=== PATIENT | male | born 1985 | race Caucasian/White ===

== ENCOUNTER 2017-09-15 20:22 | Emergency (ER) | payer BC, OTHER ==
[2017-09-15 20:41] VITALS: BMI 20.5
[2017-09-15] MEDS ORDERED: NS 1000 ML 1,000 ML IV ONE (23:20)
--- NOTE | 2017-09-15 23:26 | DR.GENAD ---
HPI - PCP Primary Care Physician: Justin - Complaint/Symptoms Chief Complaint Doctors Comments: Patient states he went to detox 13 days ago in [place] and has been unable to eat or get comfortable with decreased appetite and not being able to eat for three days. He denies chest pain, SOB, nausea or vomitng but has been having diarrhea. States he was on Symboxin for four years and did not want to take it anymore and when to detox to get off it recently. Sates he smokesbut denies alcohol or drugh usage. Statess he is a patient of Dr. Anderson but he cannot afford to go to him anymore. He denies hematuria or sherlyn. states he has been settting at the house recently and his kids has been sick. Chief Complaint:: Detoxing - Nurses notes reviewed Nurses Notes Review: Yes - Source History Provided: Patient - Mode of Arrival Mode of Arrival: Ambulatory - Timing Onset of Chief Complaint: 09/12/17 Came on: Gradually - Duration Duration: Intermittent How lon Duration: Days - Location Location: diarrhea, weakness - Severity Severity: Moderate - Modifying Factors Worsens:: movement Improves:: nothing PMH - PMH Past Medical History: No Past Medical History: Anxiety, Hypothyroidism Past Surgical History: Yes Surgical History: Appendectomy Past Surgical History Comment: Root canal and hand surgery - Family History History of Family Medical Conditions: No Family Medical History: MA, Coronary Artery Disease - Social History Does patient currently use any type of tobacco product: Yes Have you used tobacco products in the last 12 months: Yes Type of Tobacco Use: Cigarettes Does any household member use tobacco: Yes Alcohol Use: None Do you use any recreational Drugs:: No Lives With: Family Lives Where: Home - infectious screening In the last 2 months have you had wt loss of >10#?: NO Have you had fever, night sweats or hemotysis?: No Have you traveled outside the country in the last 6 months?: No Isolation: Standard ROS - Review of Systems Constitutional: No Symptoms Reported, Weakness, Fatigue, Loss of Appetite Eyes: No Symptoms Reported. negative: See HPI, Eye Pain, Blurred Vision, Tearing, Discharge, Photophobia, Diplopia, Other ENTM: No Symptoms Reported, See HPI Respiratoy: No Symptoms Reported Cardiovascular: No Symptoms Reported Gastrointestinal/Abdominal: Diarrhea. negative: No Symptoms Reported, See HPI, Abdominal Pain, Constipation, Nausea, Vomiting, Food Intolerance, Other Genitourinary: No Symptoms Reported. negative: See HPI, Discharge, Dysuria, Frequency, Hematuria, Pain, Bleeding, Other Neurological: No Symptoms Reported Musculoskeletal: No Symptoms Reported Integumentary: No Symptoms Reported Hematologic/Lymphatic: No Symptoms Reported. negative: See HPI, Anemia, Blood Clots, Easy Bleeding, Easy Bruising, Swollen Glands, Lymphadenopathy, Other Endocrine: No Symptoms Reported Psychiatric: No Symptoms Reported. negative: See HPI, Anxiety, Depression, Hallucinations, Excessive crying, Suicidal, Other PE - Vital Signs Vitals: Temperature 98.7 F Pulse Rate 92 Respiratory Rate 20 Blood Pressure [Right Arm] 132/76 Blood Pressure 163/83 O2 Sat by Pulse Oximetry 98 - General Limitations: No Limitations General Appearance: In Distress (slight). negative: Alert, In No Apparent Distress, Appears Intoxicated, Anxious, Lethargic, Obtunded, Obese, Cachectic, Other - Head Head Exam: Normal Inspection, Atraumatic, Normocephalic - Eyes Eye exam: Normal Appearance, PERRL, EOMI. negative: Scleral Icterus, Conjunctival Injection, Nystagmus, Miosis, Mydrasis, Periorbital Swelling, Periorbital Tenderness, Other - ENT ENT Exam: Normal Exam, Normal Oropharynx, Normal External Ear Exam, Mucous Membranes Moist, TM's Normal Bilaterally External Ear Exam: Normal External Inspection TM/Canal Exam: Bilateral Normal Nose Exam: Normal Nose Exam Mouth Exam: Normal Inspection Throat Exam: Normal Inspection. negative: Tonsillar Erythema, Tonsillomegaly, Tonsillar Exudate, R Peritonsillar Mass, L Peritonsillar Mass, Muffled Voice, Other - Neck Neck Exam: Normal Inspection, Full ROM, Trachea Midline. negative: Tenderness, Meningismus, Lymphadenopathy, Thyromegaly, Other - Chest Chest Inspection: Normal Inspection, Symmetric Chest Wall Rise - Respiratory Respiratory Exam: Normal Lung Sounds Bilat Respiratory Exam: Bilateral Clear to Auscultation - Cardiovascular Cardiovascular Exam: Regular Rate, Normal Rhythm, Normal Heart Sounds. negative : Bradycardia, Tachycardia, Irregular Rhythm, Systolic Murmur, Diastolic Murmur , Rubs, Gallop, Clicks, JVD, +S1, +S2, +S3, +S4, Other - Abdominal Exam Abdominal Exam: Normal Inspection, Normal Bowel Sounds, Soft, Distention. negative: Tenderness, Guarding, Rebound, Rigidity, Dimnished Bowel Sounds, Hyperactive Bowel Sounds, Hypoactive Bowel Sounds, Organomegaly, Trauma, Incision, Ascites, Mass, Bruit, Pulsatile Mass, Hernia, Other Abdominal Tenderness: Epigastrium - Extremities Extremities Exam: Normal Inspection, Full ROM, Normal Capillary Refill. negative: Tenderness, Edema, Joint Swelling, Calf Tenderness, Other - Back Back Exam: Normal Inspection, Full ROM - Neurologic Neurological Exam: Alert, Oriented X3, CN II-XII Intact, Normal Gait, Reflexes Normal. negative: Motor Sensory Deficit - Psychiatric Psychiatric Exam: Normal Affect, Normal Mood. negative: Depressed, Agitated, Anxious, Flat Affect, Homicidal Ideation - Skin Skin Exam: Warm, Dry, Intact, Normal Color ROR - Labs Reviewed Laboratory Results Reviewed?: Yes (all labs and x-ray results reviewed and discussed with patient) Result Diagrams: 09/16/17 00:20 09/16/17 00:20 Laboratory: WBC 6.8 X10^3/uL (3.6-10.0) 09/16/17 00:20 RBC 4.44 X10^6/uL (4.7-6.0) L 09/16/17 00:20 Hgb 13.6 g/dL (13.5-18.0) 09/16/17 00:20 Hct 40.1 % (42.0-54.0) L 09/16/17 00:20 MCV 90.2 fL (80.0-100.0) 09/16/17 00:20 MCH 30.6 pg (27.0-34.0) 09/16/17 00:20 MCHC 34.0 g/dL (33.0-35.0) 09/16/17 00:20 RDW 14.0 % (11.6-16.5) 09/16/17 00:20 Plt Count 287 X10^3/uL (150.0-450.0) 09/16/17 00:20 MPV 7.6 fL (7.4-11.0) 09/16/17 00:20 Neut % 68.0 % (42.0-75.0) 09/16/17 00:20 Lymph % 21.2 % (21.0-51.0) 09/16/17 00:20 Phillips % 9.6 % (0.0-13.0) 09/16/17 00:20 Eos % 0.2 % (0.9-2.9) L 09/16/17 00:20 Baso % 1.0 % (0.2-1.0) 09/16/17 00:20 Neut # 4.6 x10^3/uL (2.2-4.8) 09/16/17 00:20 Lymph # 1.4 X10^3/uL (1.3-2.9) 09/16/17 00:20 Phillips # 0.6 x10^3/uL (0.3-0.8) 09/16/17 00:20 Eos # 0.0 x10^3/uL (0.0-0.2) 09/16/17 00:20 Baso # 0.1 X10^3/uL (0.0-0.1) 09/16/17 00:20 Absolute Nucleated RBC 0.1 /100WBC 09/16/17 00:20 INR Target Range - 09/16/17 00:20 INR 1.34 (0.8-1.3) H 09/16/17 00:20 PTT 30.6 SECONDS (22.9-36.5) 09/16/17 00:20 PTT Comment - 09/16/17 00:20 Sodium 144 mmol/L (136-145) 09/16/17 00:20 Corrected Sodium TNP 09/16/17 00:20 Potassium 4.0 mmol/L (3.5-5.1) 09/16/17 00:20 Chloride 107 mmol/L (98-107) 09/16/17 00:20 Carbon Dioxide 28.8 mmol/L (21-32) 09/16/17 00:20 BUN 10 mg/dL (7-18) 09/16/17 00:20 Creatinine 0.84 mg/dL (0.70-1.30) 09/16/17 00:20 Est GFR (MDRD) Af Amer > 60 (>60) 09/16/17 00:20 Est GFR (MDRD) Non-Af > 60 (>60) 09/16/17 00:20 Glucose 101 mg/dL (65-99) H 09/16/17 00:20 Calcium 8.8 mg/dL (8.5-10.1) 09/16/17 00:20 Corrected Calcium TNP 09/16/17:20 Magnesium 1.9 mg/dL (1.7-2.9) 09/16/17 00:20 Total Bilirubin 0.40 mg/dL (0.2-1.0) 09/16/17 00:20 AST 17 Units/L (15-37) 09/16/17:20 ALT 25 Units/L (12-78) 09/16/17:20 Alkaline Phosphatase 59 Units/L (46-116) 09/16/17:20 Creatine Kinase 54 Units/L (39-308) 09/16/17:20 CK-MB (CK-2) < 1.0 ng/mL (0-4.0) 09/16/17 CK/CKMB % Calc 1.9 % (<4) 09/16/17 Troponin I < 0.02 ng/mL (0-1.5) 09/16/17: Total Protein 7.1 g/dL (6.4-8.2) 09/16/17:20 Albumin 3.8 g/dL (3.4-5.0) 09/16/17:20 Globulin 3.3 g/dL (2.5-4.5) 09/16/17 00: Albumin/Globulin Ratio 1.2 Ratio (1.1-2.1) 09/16/17 00:20 Specimen Type Clean catch urine 09/16/17: Urine Color Yellow (YELLOW) 09/16/17 Urine Appearance Clear (CLEAR) 09/16/17: Urine pH 6.0 (5.0 - 8.0) 09/16/17: Ur Specific [place] 1.015 (1.000-1.030) 09/16/17: Urine Protein Negative (NEGATIVE) 09/16/17: Urine Glucose (UA) Negative (NEGATIVE) 09/16/17: Urine Ketones Negative (NEGATIVE) 09/16/17: Urine Occult Blood Negative (NEGATIVE) 09/16/17: Urine Nitrite Negative (NEGATIVE) 09/16/17: Urine Bilirubin Negative (NEGATIVE) 09/16/17 Urine Urobilinogen Normal (NORMAL) 01/13/18 00:26 Ur Leukocyte Esterase 1+ (NEGATIVE) 09/16/17 00:26 Urine RBC 0-3 /HPF (NEGATIVE) 09/16/17 00:26 Urine WBC 2-6 /HPF (NEGATIVE) 09/16/17 00:26 Ur Squamous Epith Cells Rare /HPF (NEGATIVE) 09/16/17 00:26 Urine Bacteria Negative /HPF (NEGATIVE) 09/16/17 00:26 Ur Culture Indicated? No/not indicated 09/16/17 00:26 Urine Opiates Screen Negative (NEG=<300) 09/16/17 00:26 Urine Methadone Screen Negative (NEG=<300) 09/16/17 00:26 Ur Barbiturates Screen Negative (NEG=<200) 09/16/17 00:26 Ur Phencyclidine Scrn Negative (NEG=<25) 09/16/17 00:26 Ur Amphetamines Screen Negative (NEG=<1000) 09/16/17 00:26 U Benzodiazepines Scrn Positive (NEG=<200) 09/16/17 00:26 Urine Cocaine Screen Negative (NEG=<300) 09/16/17 00:26 U Marijuana (THC) Screen Negative (NEG=<50) 09/16/17 00:26 - XRAY XRAY Interpreted by: Radiologist (CXR: No acute cardiopulmonary abnormality) - Diagnosis Discharge Problem: Generalized weakness, Sinusitis chronic, frontal, Anxiety - Discharge Plan Disposition: HOME, SELF-CARE Condition: Stable Prescriptions: Cyproheptadine HCl [Periactin Tab 4 mg] 4 mg PO TID #21 tab Oseltamivir Phosphate [Tamiflu] 75 mg PO BID #10 cap - Follow ups/Referrals Follow ups/Referrals: BULMARO,Ursula [Primary Care Provider] - 3 days OLAF FRAGA [STAFF PHYSICIAN] - 3 days - Instructions Instructions: Viral Respiratory Infection, [id number], Sinusitis, Adult, Easy -to-Read Additional Instructions: Patient to call for the results of the Flu test. He is to take Tamiflu only if his flu test is positive.
[2017-09-15] MEDS ORDERED: NS 1000 ML 1,000 ML ONE (23:45)
--- NOTE | 2017-09-16 00:11 | RAD ---
AP chest Indication: Generalized malaise with chills Findings: The trachea is midline. Heart size is normal. Lungs are clear. No pleural effusion or pneum othorax. No acute osseous abnormality. Impression: No acute cardiopulmonary abnormality. Reported By:
[2017-09-16 00:37] LABS: BASOPHILS # (AUTO) 0.1 X10^3/uL (0.0-0.1); EOSINOPHILS % (AUTO) 0.2 % (0.9-2.9); HEMATOCRIT 40.1 % (42.0-54.0); HEMOGLOBIN 13.6 g/dL (13.5-18.0); LYMPHOCYTES # (AUTO) 1.4 X10^3/uL (1.3-2.9); LYMPHOCYTES % (AUTO) 21.2 % (21.0-51.0); MEAN CORPUSCULAR HEMOGLOBIN 30.6 pg (27.0-34.0); MEAN CORPUSCULAR VOLUME 90.2 fL (80.0-100.0); MEAN PLATELET VOLUME 7.6 fL (7.4-11.0); MONOCYTES # (AUTO) 0.6 x10^3/uL (0.3-0.8); MONOCYTES % (AUTO) 9.6 % (0.0-13.0); NEUTROPHILS # (AUTO) 4.6 x10^3/uL (2.2-4.8); PLATELET COUNT 287 X10^3/uL (150.0-450.0); RED BLOOD COUNT 4.44 X10^6/uL (4.7-6.0); WHITE BLOOD COUNT 6.8 X10^3/uL (3.6-10.0)
[2017-09-16 00:49] LABS: BILIRUBIN,URINE NEGATIVE (NEGATIVE); BLOOD/HEMOGLOBIN,URINE NEGATIVE (NEGATIVE); GLUCOSE, URINE NEGATIVE (NEGATIVE); KETONES,URINE NEGATIVE (NEGATIVE); LEUKOCYTE ESTERASE ,URINE 1+ (NEGATIVE); NITRITES,URINE NEGATIVE (NEGATIVE); PROTEIN,URINE NEGATIVE (NEGATIVE); UROBILINOGEN,URINE NORMAL (NORMAL)
[2017-09-16 00:59] LABS: BLOOD UREA NITROGEN 10 mg/dL (7-18); CALCIUM 8.8 mg/dL (8.5-10.1); CARBON DIOXIDE 28.8 mmol/L (21-32); CHLORIDE 107 mmol/L (98-107); CREATININE 0.84 mg/dL (0.70-1.30); SODIUM 144 mmol/L (136-145); TROPONIN I < 0.02 ng/mL (0-1.5); eGFR BLACK RACES > 60 (>60); eGFR NON BLACK RACES > 60 (>60)
[2017-09-16 01:01] LABS: ALANINE AMINOTRANSFERASE 25 Units/L (12-78); ALBUMIN 3.8 g/dL (3.4-5.0); ALKALINE PHOSPHATASE 59 Units/L (46-116); ASPARTATE AMINO TRANSFERASE 17 Units/L (15-37); CKMB % 1.9 % (<4); CREATINE KINASE 54 Units/L (39-308); CREATINE KINASE MB < 1.0 ng/mL (0-4.0); MAGNESIUM 1.9 mg/dL (1.7-2.9); TOTAL PROTEIN 7.1 g/dL (6.4-8.2)
[2017-09-16 01:07] LABS: APPEARANCE,URINE CLEAR (CLEAR); BACTERIA,URINE NEGATIVE /HPF (NEGATIVE); COLOR,URINE YELLOW (YELLOW); RBC,URINE 0-3 /HPF (NEGATIVE); SQUAMOUS EPITHELIAL CELL,UR RARE /HPF (NEGATIVE)
[2017-09-16 02:59] VITALS: BP 152/91
== END 2017-09-16 03:20 | disposition home or self-care (01) ==
LOC: ER 20:50
DX: R53.1 Weakness (principal); J32.1 Chronic frontal sinusitis; F41.8 Other specified anxiety disorders
CPT/HCPCS: 36415; 71045; 80053; 80307; 81001; 82550; 82553; 83735; 84484; 85025; 85610; 85730; 87502; 93005; 93010; 96365; 99283; A4222; G0434